=== PATIENT | male | born 1990 | race African-American/Black ===

== ENCOUNTER 2016-06-16 17:59 | Emergency (ER) | payer OTHER ==
[2016-06-16 18:14] LABS: URINE SOURCE CLEAN CATCH
[2016-06-16 18:20] LABS: URINE APPEARANCE CLOUDY; URINE BILIRUBIN NEG (NEG); URINE BLOOD 1+ (NEG); URINE COLOR YELLOW; URINE GLUCOSE NEG (NEG); URINE KETONE NEG (NEG); URINE LEUKOCYTE ESTERASE 3+ (NEG); URINE NITRATE NEG (NEG); URINE PH 7.5 (5-8); URINE PROTEIN NEG (NEG); URINE SPECIFIC GRAVITY 1.013 (1.003-1.035); URINE UROBILINOGEN 0.2 MG/DL (NEG)
[2016-06-16 18:22] LABS: CULTURE INDICATED? YES; URINE SQUAMOUS EPITHELIAL CELL NONE SEEN /[HPF]; UWBCS1 AUWI 50-100 (0-5)
[2016-06-16 18:30] LABS: URINE BACTERIA AUWI 2+ (NEGATIVE); URINE TRICHOMONAS NEGATIVE
[2016-06-20 15:44] LABS: CHLAMYDIA TRACH Detected (Not Detected); N GONOR Detected (Not Detected)
== END 2016-06-16 19:03 | disposition home or self-care (01) ==
LOC: CFTX 17:59
PROVIDERS: Emergency Medicine; Nurse Practitioner
DX: N34.2 Other urethritis (principal); Z20.2 Contact with and (suspected) exposure to infections with a predominantly sexual mode of transmission; F17.200 Nicotine dependence, unspecified, uncomplicated
CPT/HCPCS: 81003; 87086; 87491; 87591; 96372; 99283; J0696